=== PATIENT | female | born 1990 ===

== ENCOUNTER 2017-04-23 07:37 | Day surgery (SDC) | payer OTHER ==
[2017-04-19 09:08] VITALS: BMI 21.9
[2017-04-23] MEDS ORDERED: Propofol 10 mg/ml Inj (20 ML) ONE (09:26)
[2017-04-23] MEDS ORDERED: Methylene Blue 10 mg/mL(10ml) IV ONE (09:27)
[2017-04-23] MEDS ORDERED: Doxycycline 100 mg Inj ONE (09:27)
[2017-04-23] MEDS ORDERED: Succinylcholine Chloride 20 mg/ml Syr (5 ml) IV ONE (09:39)
[2017-04-23] MEDS ORDERED: Bupivacaine HCl 0.25% PF (10 ml) Inj ONE ×2 (09:56→10:17)
[2017-04-23] MEDS ORDERED: Rocuronium 10 mg/ml (5 ml) ONE (09:56)
[2017-04-23] MEDS ORDERED: Silver Nitrate Topical - Stick ONE ×2 (10:48→13:03)
--- NOTE | 2017-04-23 11:03 | PCM.SURG1 ---
Surgeon's Initial Post Op Note - Surgeon's Notes Surgeon: Dr. Valadez Press Shop Supervisor: Dr. Cornelius Type of Anesthesia: General Endo Pre-Operative Diagnosis: Chronic pelvic pain, dysmenorrhea, menorrhagia, PCOS Operative Findings: Uterus approximately 10 week sized. Intrauterine cavity was seen with right ostia visible. Left ostia was occluded by scar tissue. Multiple adhesions were noted bilaterally between ovaries and pelvic side wall. Absent right tube consistent with previous salpingectomy, lleft tube occluded. Post-Operative Diagnosis: same Operation Performed: Diagnostic laparoscopy, lysis of adhesions, chromotubation , hysteroscopy d&C Specimen/Specimens Removed: endometrial curettings Estimated Blood Loss: EBL {In ML}: 5 Blood Products Given: N/A Drains Used: No Drains Post-Op Condition: Good Date of Surgery/Procedure: 04/23/17 Time of Surgery/Procedure: 10:00
--- NOTE | 2017-04-23 11:13 | CP.PCM.DIS ---
Provider - Provider Date of Admission: 04/23/17 Attending physician: Nikcie Valadez Time Spent in preparation of Discharge (in minutes): 10 Diagnosis - Discharge Diagnosis (1) Chronic pelvic pain in female Status: Acute (2) PCOS (polycystic ovarian syndrome) Status: Acute (3) Dysmenorrhea Status: Acute (4) Menorrhagia Status: Acute Hospital Course - Hospital Course Hospital Course: Patient underwent the previously mentioned findings and tolerated the procedure well. She was discharged home in stable condition once patient was ambulating, voiding, tolerating regular diet. - Date & Time of H&P Date of H&P: 04/23/17 Time of H&P: 09:20 Discharge Exam - Eye Exam Eye Exam: Normal appearance - Respiratory Exam Respiratory Exam: NORMAL BREATHING PATTERN, UNREMARKABLE - GI/Abdominal Exam GI & Abdominal Exam: Unremarkable - Exam External exam: NORMAL EXTERNAL EXAM Speculum exam: NORMAL SPECULUM EXAM Bimanual exam: NORMAL BIMANUAL EXAM - Extremities Exam Extremities exam: normal inspection - Skin Skin Exam: Normal Color, Warm Discharge Plan - Follow Up Plan Condition: GOOD Disposition: DISCHARGED TO HOME CARE
[2017-04-23] MEDS ORDERED: Lactated Ringer's 1,000 ML IV SCH (11:15)
[2017-04-23 14:23] VITALS: RESP 18; O2SAT 98
[2017-04-23 14:39] VITALS: BP 95/52; PULSE 82; TEMP 97.7
--- NOTE | 2017-04-23 22:44 | OP ---
PROCEDURE DATE: 04/23/2017 PREOPERATIVE DIAGNOSES: Chronic pelvic pain, dysmenorrhea, menorrhagia, polycystic ovary syndrome. POSTOPERATIVE DIAGNOSES: Chronic pelvic pain, dysmenorrhea, menorrhagia, polycystic ovary syndrome. SURGERY PERFORMED: Diagnostic laparoscopy, lysis of adhesions, chromopertubation, hysteroscopy, dilation and curettage. SURGEON: Nickie Valadez MD RISK MANAGER SURGEON: Suhas Cornelius MD TYPE OF ANESTHESIA: General endotracheal. INTRAOPERATIVE FINDINGS: Uterus approximately 10-week sized; intrauterine cavity was visualized; right ostia was visible, left ostia was occluded by scar tissue; multiple adhesions were noted bilaterally between ovaries and pelvic sidewall; absent right tube consistent with previous salpingectomy and the left tube occluded. SPECIMEN REMOVED: Endometrial curetting. ESTIMATED BLOOD LOSS: 5 mL. BLOOD PRODUCTS GIVEN: There were no blood products given. DRAINS: None. POSTOPERATIVE CONDITION: Stable. ADDITIONAL COMMENTS: All lap counts and instrument counts were correct x2. DESCRIPTION OF PROCEDURE: After all relevant documentation was reviewed and signed by , the patient was taken back to the OR room. She was prepped and draped in the usual sterile fashion and placed in lithotomy position after general anesthesia was administered. After Campbell catheter was introduced with a bivalved speculum, excellent visualization of the cervix was noticed. The posterior lip of the cervix was grabbed with a single-tooth tenaculum and then the cervix was serially dilated. The hysteroscope was then introduced and the previously mentioned findings were noted. The hysteroscope was removed, and the HUMI manipulator was then placed. The single-tooth tenaculum and bivalved speculum were then removed. Attention was then placed to the patient's abdomen where a 5-mm umbilical incision was made and the scope was then introduced under direct visualization. Once inside the intraabdominal cavity, pneumoperitoneum was obtained, and the above-mentioned findings were noted. Attention was then placed through the left lower quadrant where a 5-mm port was introduced under direct visualization, and in similar fashion, a 5-mm port was introduced under direct visualization on the right lower quadrant. We proceeded with the lysis of adhesions, lysing the adhesions between the ovary and the pelvic side wall bilaterally. Attention was then placed to both tubes, were injecting the dye for the chromopertubation, no dye was spilled from either tubes. There was some bleeding noted from the fimbriae of the left fallopian tube, which was made hemostatic, and covered with FloSeal. Examination of the surgical area under low pressure revealed excellent hemostasis. The pneumoperitoneum was then evacuated and the ports were then closed with the use of 3-0 Monocryl in a subcuticular fashion and covered with Dermabond. Examination done of the cervix revealed some bleeding from the single-tooth tenaculum site, which was made hemostatic with the use of silver nitrate sticks. The patient tolerated the procedure well and then was taken to the recovery room in stable condition. Nickie Valadez MD
== END 2017-04-23 14:51 | disposition home or self-care (01) ==
LOC: C.SDS 07:37
PROVIDERS: ATTEND Obstetrics & Gynecology
DX: N92.0 Excessive and frequent menstruation with regular cycle (principal); N94.9 Unspecified condition associated with female genital organs and menstrual cycle; E28.2 Polycystic ovarian syndrome; G89.29 Other chronic pain; N94.6 Dysmenorrhea, unspecified; N83.209 Unspecified ovarian cyst, unspecified side
CPT/HCPCS: 49320; 58350; 58558; 88305; C2615; J1170; J2405; J2704; J3010